=== PATIENT | female | born 1975 | race Caucasian/White ===

== ENCOUNTER 2021-04-13 11:07 | Emergency (ER) | payer OTHER ==
[~2021-04-13] VITALS: Ht 165.1 cm; Wt 72.6 kg
[~2021-04-13 11:07] MED LIST: CLARITIN PO
[2021-04-13] MEDS ORDERED: KETOROLAC TROMETHAMINE 15 MG INJ IM ONE (11:30)
[2021-04-13] MEDS ORDERED: KETOROLAC TROMETHAMINE 30 MG INJ ONE ×2 (11:33→11:47)
[2021-04-13] MEDS ORDERED: PRED50TA PO (12:36)
[2021-04-13] MEDS ORDERED: AZIT250T PO (12:36)
[2021-04-13] MEDS ORDERED: ALBU8.5H8 INH (12:36)
--- NOTE | 2021-04-13 12:51 | NUR ---
Gave pt RX and d/c instructions, pt verbalized understanding.
== END 2021-04-13 12:53 | disposition home or self-care (01) ==
LOC: ER 11:08
DX: J22 Unspecified acute lower respiratory infection (principal); R09.1 Pleurisy; Z79.2 Long term (current) use of antibiotics
CPT/HCPCS: 71045; 93005; 96372; 99283; J1885; A4663